=== PATIENT | female | born 1960 | race Hispanic/Latino ===

== ENCOUNTER → 2023-08-07 | Outpatient (CLI) | payer OTHER | END | disposition home or self-care (01) | LOC: RAH 13:47 | PROVIDERS: ATTEND Otolaryngology Plastic Surgery within the Head & Neck | DX: R22.1 Localized swelling, mass and lump, neck (principal) | CPT/HCPCS: 76536 ==

== ENCOUNTER → 2023-09-04 | Outpatient (CLI) | payer OTHER ==
[2023-09-04 07:54] LABS: INR 0.99 (0.85-1.15); PROTHROMBIN TIME 11.5 SEC (9.6-11.6)
[2023-09-04 07:56] LABS: PARTIAL THROMBOPLASTIN TIME 29.7 SEC (26.3-35.5)
== END | disposition home or self-care (01) ==
LOC: RAH 07:10
PROVIDERS: ATTEND Otolaryngology Plastic Surgery within the Head & Neck
DX: D11.0 Benign neoplasm of parotid gland (principal); Z79.01 Long term (current) use of anticoagulants; Z79.899 Other long term (current) drug therapy
CPT/HCPCS: 36415; 38505; 42400; 76942; 85610; 85730; 88307